=== PATIENT | male | born 1940 | race Hispanic/Latino ===

== ENCOUNTER → 2019-04-18 | Outpatient (CLI) | payer MEDICARE ==
[~2019-04-18] MED LIST: ACYCLOVIR200 MG PO; ASPIR 8181 MG PO; CLOPIDOGREL75 MG PO; D3 PO; FLUTICASONE PRO16 GM INH; FUROSEMIDE40 MG PO; GABAPENTIN300 MG PO; HYDROCODON-ACE1 EA11 PO; ISOSORBIDE MONO20 MG PO; KLOR-CON 88 MEQ PO; LEVOTHYROXINE PO; LISINOPRIL2.5 MG PO; LORATADINE10 MG PO; LORTAB 7.5-5001 EACH PO; LOVENOX40 MG/0.4 SC; METHYLPREDNISOLO4 M1 PO; METOPROLOL TART50 MG PO; PANTOPRAZOLE SO40 MG PO; POTASSIUM CHLO20 ME1 PO; PRAVASTATIN SOD40 MG PO; RANEXA500 MG PO; SYMBICORT 16010.2 GM IH; TEMAZEPAM15 MG PO; ULTRAM 50MG50 MG PO; VITAMIN D1000 UNI1 PO
--- NOTE | 2019-04-18 14:52 | Diagnostic Imaging Report ---
CT of the chest, without contrast, 04/18/2019. History: Pulmonary nodule. Comparison: None available. Technique: Multidetector CT scanning of the chest was performed from the level of the apices to the upper abdomen without contrast. Coronal and sagittal multiplanar reformations were obtained. RADIATION DOSE: Total DLP: 225 mGy*cm Dose modulation, iterative reconstruction, and/or weight based adjustment of the mA/kV was utilized to reduce the radiation dose to as low as reasonably achievable. Discussion: Evaluation is limited without IV contrast. Chest: The heart, aorta, and pulmonary vessels are normal in size. There is calcification of the coronary arteries. 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 There is no gross evidence of adenopathy. There is scattered bilateral subsegmental atelectasis. There are no significant nodules. There is no evidence of consolidation or pleural effusion. Limited evaluation of the upper abdomen shows normal adrenal glands. Bones and soft tissues: No acute abnormality. 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 Median sternotomy wires are present. IMPRESSION: No acute or suspicious findings. Signed by: Sunny Salinas on 04/18/2019 2:49 PM
== END ==
LOC: CT 11:24
PROVIDERS: ATTEND Internal Medicine Critical Care Medicine
DX: R91.8 Other nonspecific abnormal finding of lung field (principal)
CPT/HCPCS: 71250

== ENCOUNTER 2019-07-08 01:15 | Emergency (ER) | payer MEDICARE ==
[~2019-07-08] VITALS: Ht 162.6 cm; Wt 81.6 kg
--- OUTSIDE RECORDS SUMMARY | 2019-07-08 01:20 | XMS REPORT ---
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 Allergies, Adverse Reactions, Alerts This patient has no known allergies or adverse reactions. Medications This patient has no known medications. Results Test Description Test Time Test Comments Text Results Atomic Results Result Comments CT CHEST WO 2019-04-18 14:44:[address] [address] Patient Name: BRYCE MADISON MR #: [id number] : 1940 Age/Sex: 78/M Req #: [id number] Adm Physician: Ordered by: DESMOND MEDRANO MD Report #: [id number] Location: CT Room/Bed: Procedure: [id number] CT/CT CHEST WO Exam Date: 04/18/19 Exam Time: 1130 REPORT STATUS: Signed CT of the chest, without contrast, 04/18/2019. History: Pulmonary nodule. Comparison: None available. Technique: Multidetector CT scanning of the chest was performed from the level of the apices to the upper abdomen without contrast. Coronal and sagittal multiplanar reformations were obtained. RADIATION DOSE: Total DLP: 225 mGy*cm Dose modulation, iterative reconstruction, and/or weight based adjustment of the mA/kV was utilized to reduce the radiation dose to as low as reasonably achievable. Discussion: Evaluation is limited without IV contrast. Chest: The heart, aorta, and pulmonary vessels are normal in size. There is calcification of the coronary arteries. 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 There is no gross evidence of adenopathy. There is scattered bilateral subsegmental atelectasis. There are no significant nodules. There is no evidence of consolidation or pleural effusion. Limited evaluation of the upper abdomen shows normal adrenal glands. Bones and soft tissues: No acute abnormality. 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 Median sternotomy wires are present. IMPRESSION: No acute or suspicious findings. Signed by: Madonna Salinas on 04/18/2019 2:49 PM Dictated By: MADONNA SALINAS MD [id number] Transcribed By: LAUREN on 04/18/19 1449 COPY TO: DESMOND MCDOWELL MD
[2019-07-08] MEDS ORDERED: SILVER NITRATE SWABS ONE (01:37)
[2019-07-08] MEDS ORDERED: AUGMENTIN 875-1 EACH PO (01:42)
[2019-07-08] MEDS ORDERED: TESSALON PERLE100 MG PO (01:52)
== END 2019-07-08 02:16 | disposition home or self-care (01) ==
LOC: FSED 01:15
DX: R04.0 Epistaxis (principal)
CPT/HCPCS: 99283

== ENCOUNTER 2019-07-10 11:13 | Emergency (ER) | payer MEDICARE ==
[~2019-07-10] VITALS: Ht 162.6 cm; Wt 81.6 kg
[~2019-07-10 11:13] MED LIST changes: +AUGMENTIN 875-1 EACH PO; +TESSALON PERLE100 MG PO
[2019-07-10] MEDS ORDERED: OXYMETAZOLINE HCL 0.05% NAS 1 SPRAY BTL ONE ×2 (11:41→12:15)
--- NOTE | 2019-07-10 11:45 | NUR ---
NASAL PACKING REMOVED BY DR SIMMONS PT TOLERATED WELL
== END 2019-07-10 11:48 | disposition home or self-care (01) ==
LOC: FSED 11:13
DX: Z48.00 Encounter for change or removal of nonsurgical wound dressing (principal); R05 Cough; J31.0 Chronic rhinitis; Z95.1 Presence of aortocoronary bypass graft
CPT/HCPCS: 99282

== ENCOUNTER 2020-01-16 12:48 | Emergency (ER) | payer MEDICARE ==
[~2020-01-16] VITALS: Ht 162.6 cm; Wt 81.6 kg
--- OUTSIDE RECORDS SUMMARY | 2020-01-16 12:53 | XMS REPORT | Continuity of Care Document ---
Author Author [facility] t Organization [facility] Address [address] [place] [address] Phone Unavailable Care Team Providers Care Vascular Technologist Name Role Phone JEAN-PIERRE ANAYA, DEAN PCP DESMOND MEDRANO Unavailable Payers Payer Name Policy Type Policy Number Effective Date Expiration Date [facility] [id number] 2016 00:00:00 [facility] TM [id number] 2015 00:00:00 [facility] Problems Condition Name Condition Details Condition Category Status Onset Date Resolution Date Last Treatment Date Treating Clinician Comments Source Anemia Anemia Problem Active [facility] Dyspnea Dyspnea Problem Active [facility] Allergies, Adverse Reactions, Alerts Allergy Name Allergy Type Status Severity Reaction(s) Onset Date Inacti ve Date Treating Clinician Comments Source No Known Allergies DA Active U 2015-12-24 00:00:00 [facility] Medications Ordered Medication Name Filled Medication Name Start Date Stop Da te Current Medication? Ordering Clinician Indication Dosage Frequency Signature (SIG) Comments Components Source Amoxicillin/Potassium Clav (Augmentin 875-125 Tablet) 1 Each Tablet Amoxicillin/Potassium Clav (Augmentin 875-125 Tablet) 1 Each Tablet 2019-07-08 00:00:00 Yes Luis Carvajal Md [address] [facility] Benzonatate (Tessalon Perle) 100 Mg Capsule Benzonatat e (Tessalon Perle) 100 Mg Capsule 2019-07-08 00:00:00 Yes Luis Carvajal Md 100 Three Times A Day as needed for Cough [facility] Aspirin (Aspir 81) 81 Mg Tablet. Aspirin (Aspir 81) 81 Mg Tablet. Yes [address] [facility] Budesonide/Formoterol Fumarate (Symbicor t 160-4.5 Mcg Inhaler) 10.2 Gm Hfa.aer.ad Budesonide/Formoterol Fumarate (Symbicor t 160-4.5 Mcg Inhaler) 10.2 Gm Hfa.aer.ad Yes [address] [facility] Cholecalciferol (Vitamin D3) (Vitamin D) 1,000 Unit [place] Cholecalciferol (Vitamin D3) (Vitamin D) 1,000 Unit Tablet Yes [address] [facility] Clopidogrel Bisulfate (Clopidogrel) 75 Mg Tablet Clopi dogrel Bisulfate (Clopidogrel) 75 Mg Tablet Yes [address] [facility] Fluticasone Propionate 16 Gm Frohna.susp Fluticasone Propiona te 16 Gm Frohna.susp Yes 50 Daily [facility] Furosemide 40 Mg Tablet Furosemide 40 Mg Tablet Yes [address] [facility] Isosorbide Mononitrate 20 Mg Tablet Isosorbide Mononitrate 20 Mg Tabl et Yes 120 Daily [facility] Levothyroxine Levothyroxine Yes [address] [facility] Lisinopril 2.5 Mg Tablet Lisinopril 2.5 Mg Tablet Yes 2.[address] [facility] Loratadine 10 Mg Tablet Loratadine 10 Mg Tablet Yes [address] [facility] Metoprolol Tartrate 50 Mg Tablet Metoprolol Tartrate 50 Mg Tablet Yes [address] [facility] Pantoprazole Sodium (Protonix) 40 Mg Tablet. Pantopr azole Sodium (Protonix) 40 Mg Tablet. Yes [address] [facility] Potassium Chloride 20 Meq Tab.er.prt Potassium Chloride 20 Meq Tab. er.prt Yes 10 Twice A Day [facility] Ranolazine (Ranexa) 500 Mg Tabsr Ranolazine (Ranexa) 500 Mg Tabsr Yes [address] [facility] Tramadol Hcl (Ultram 50MG*) 50 Mg Tab Tramadol Hcl (Ultram 50MG*) 5 0 Mg Tab Yes 50 Every 6 Hours as needed for Pain [facility] Acyclovir 200 Mg Capsule, 200 Mg Oral Acyclovir 200 Mg Capsule, 200 Mg Oral 2016-05-05 00:00:00 No [address] [facility] D3 , 2000 Oral D3 , 1999 Oral 2016-05-05 00:00:[address] [facility] Enoxaparin Sodium (Lovenox) 40 Mg/0.4 Ml Inj, 40 Mg Hanson bcutaneously Enoxaparin Sodium (Lovenox) 40 Mg/0.4 Ml Inj, 40 Mg Subcutaneously 2015 00:00:[address] [facility] Gabapentin 300 Mg Capsule, 300 Mg Oral Gabapentin 300 Mg Capsule , 300 Mg Oral 2016-05-05 00:00:00 No [address] [facility] Hydrocodone Bit/Acetaminophen (Hydrocodo n-Acetaminophen 5-325) 1 Each Tablet, Oral Hydrocodone Bit/Acetaminophen (Hydrocodo n-Acetaminophen 5-325) 1 Each Tablet, Oral 2016-05-05 00:00:00 No Twice A D ay [facility] Hydrocodone Bit/Acetaminophen (Lortab 7. 5-500 Tablet) 1 Each Tablet, 1 - 2 Tab Oral Hydrocodone Bit/Acetaminophen (Lortab 7. 5-500 Tablet) 1 Each Tablet, 1 - 2 Tab Oral 2016-05-05 00:00:00 No Every [address] [facility] Methylprednisolone 4 Mg Tab.ds.pk, Oral Methylpredni solone 4 Mg Tab.ds.pk, Oral 2016-05-05 00:00:[address] [facility] Potassium Chloride (Klor-Con 8) 8 Meq Tablet.er, 8 Meq Oral Potassium Chloride (Klor-Con 8) 8 Meq Tablet.er, 8 Meq Oral 2016-05-05 00:00:00 No 8 Twice A Day [facility] Pravastatin Sodium 40 Mg Tablet, 40 Mg Oral Pravastati n Sodium 40 Mg Tablet, 40 Mg Oral 2016-05-05 00:00:[address] [facility] Temazepam 15 Mg Capsule, 15 Mg Oral Temazepam 15 Mg Capsule, 15 Mg Oral 2016-05-05 00:00:[address] [facility] Procedures Procedure Date / Time Performed Performing Clinician Sour e Computed tomography of chest without contrast 2019-04-18 00:00:[address] [facility] Encounters Start Date/Time End Date/Time Encounter Type Admission Type [facility] Emergency Department Facility Care Department Encounter ID Source 2019-07-10 11:13:00 2019-07-10 11:48:00 Departed Emergency Room [facility] [id number] [facility] 2019-07-08 01:15:00 2019-07-08 02:16:00 Departed Emergency Room [facility] [id number] [facility] 2019-04-18 11:24:00 2019-04-18 11:24:00 Registered Clinic 3 DESMOND HARRISON [facility] [id number] [facility] Results Test Description Test Time Test Comments Results Result Comments Source CBC W/AUTO DIFF 2020-01-08 08:45:00 Test Item WHITE BLOOD CELL (test code = WBC) 6.50 x10 3/uL 4.5-11.0 N RED BLOOD CELL (test code = RBC) 3.39 x10 6/uL 4.00-5.60 L HEMOGLOBIN (test code = HGB) 7.4 g/dL 12.5-16.9 L HEMATOCRIT (test code = HCT) 24.8 % 37.5-50.7 L MEAN CELL VOLUME (test code = MCV) 73.2 fL 81.0-99.0 L MEAN CELL HGB (test code = MCH) 21.8 pg 27.0-33.0 L MEAN CELL HGB CONCETRATION (test code = MCHC) 29.8 g/dL 33.0-37. 0 L RED CELL DISTRIBUTION WIDTH CV (test code = RDW) 20.8 % 11.5- 14.5 H RED CELL DISTRIBUTION WIDTH SD (test code = RDW-SD) 55.3 fL 37 .0-54.0 H PLATELET COUNT (test code = PLT) 182 x10 3/uL 150-400 N IMMATURE PLATELET FRACTION (test code = IPF) 4.3 % 0.9-11.2 N MEAN PLATELET VOLUME (test code = MPV) 10.8 fL 7.0-9.0 H NEUTROPHIL % (test code = NT%) 60.4 % 56.0-77.0 N IMMATURE GRANULOCYTE % (test code = IG%) 0.3 % 0.0-2.0 N LYMPHOCYTE % (test code = LY%) 25.1 % 14.0-32.0 N MONOCYTE % (test code = MO%) 10.3 % 4.8-9.0 H EOSINOPHIL % (test code = EO%) 3.4 % 0.3-3.7 N BASOPHIL % (test code = BA%) 0.5 % 0.0-2.0 N NUCLEATED RBC % (test code = NRBC%) 0.0 % 0-0 N NEUTROPHIL # (test code = NT#) 3.93 x10 3/uL 2.0-7.6 N IMMATURE GRANULOCYTE # (test code = IG#) 0.02 x10 3/uL 0.00-0.03 N LYMPHOCYTE # (test code = LY#) 1.63 x10 3/uL 1.0-3.8 N MONOCYTE # (test code = MO#) 0.67 x10 3/uL 0.1-0.8 N EOSINOPHIL # (test code = EO#) 0.22 x10 3/uL 0.0-0.2 H BASOPHIL # (test code = BA#) 0.03 x10 3/uL 0.0-0.2 N NUCLEATED RBC # (test code = NRBC#) 0.00 x10 3/uL 0.0-0.1 N MANUAL DIFF REQUIRED (test code = MDIFF) NO BASIC METABOLIC [id number] 08:06:00* Test Item Value Reference Range Interpretation Comments SODIUM (test code = NA) 141 mEq/L 134-147 N POTASSIUM (test code = K) 3.7 mEq/L 3.4-5.0 N CHLORIDE (test code = CL) 109 mEq/L 100-108 H CARBON DIOXIDE (test code = CO2) 23 mEq/L 21-33 N ANION GAP (test code = GAP) 13 0-20 N GLUCOSE (test code = GLU) 68 mg/dL 70-110 L BLOOD UREA NITROGEN (test code = BUN) 12 mg/dL 7-18 N GLOMERULAR FILTRATION RATE (test code = GFR) 81.6 70-80 H Units of measure = ml/min/1.73 m2 CREATININE (test code = CREAT) 0.9 mg/dL 0.6-1.3 N CALCIUM (test code = CA) 8.1 mg/dL 8.0-10.5 N [id number] 08:06:00* Test Item Value Reference Range Interpretation Comments MAGNESIUM (test code = MAG) 2.40 mg/dL 1.8-2.4 N PROTHROMBIN [id number] 06:36:00* Test Item Value Reference Range Interpretation Comments PROTHROMBIN TIME PATIENT (test code = PTP) 14.3 SECONDS 9.3-12.9 H INTERNATIONAL NORMAL RATIO (test code = INR) 1.3 0.8-1.2 H TARGET INR BY INDICATION Indication INR1. Prophylaxis of venous thrombosis 2.0 - 3.0 (orthopedic surgery), Prophylaxis of venous thrombosis (other than high-risk surgery), Treatment of Deep Vein Thrombosis/Pulmonary Embolism, Prevention of systemic embolism - Tissue heart valves, Acute Myocardial Infarction (to prevent systemic embolism), Valvular heart disease, Atrial Fibrillation, Bileaflet mechanical valve in aortic position.2. Mechanical prosthetic valves (high risk), 2.5 - 3.5 Presence of Lupus Anticoagulant or Antiphospholipid Antibodies, Prevention of systemic embolism - Acute Myocardial Infarction (to prevent recurrent infarct). PROTHROMBIN [id number] 12:17:00* Test Item Value Reference Range Interpretation Comments PROTHROMBIN TIME PATIENT (test code = PTP) 14.0 SECONDS 9.3-12.9 H INTERNATIONAL NORMAL RATIO (test code = INR) 1.3 0.8-1.2 H TARGET INR BY INDICATION Indication INR1. Prophylaxis of venous thrombosis 2.0 - 3.0 (orthopedic surgery), Prophylaxis of venous thrombosis (other than high-risk surgery), Treatment of Deep Vein Thrombosis/Pulmonary Embolism, Prevention of systemic embolism - Tissue heart valves, Acute Myocardial Infarction (to prevent systemic embolism), Valvular heart disease, Atrial Fibrillation, Bileaflet mechanical valve in aortic position.2. Mechanical prosthetic valves (high risk), 2.5 - 3.5 Presence of Lupus Anticoagulant or Antiphospholipid Antibodies, Prevention of systemic embolism - Acute Myocardial Infarction (to prevent recurrent infarct). BASIC METABOLIC [id number] 11:43:00* Test Item Value Reference Range Interpretation Comments SODIUM (test code = NA) 138 mEq/L 134-147 N POTASSIUM (test code = K) 3.9 mEq/L 3.4-5.0 N CHLORIDE (test code = CL) 104 mEq/L 100-108 N CARBON DIOXIDE (test code = CO2) 25 mEq/L 21-33 N ANION GAP (test code = GAP) 13 0-20 N GLUCOSE (test code = GLU) 115 mg/dL 70-110 H BLOOD UREA NITROGEN (test code = BUN) 14 mg/dL 7-18 N GLOMERULAR FILTRATION RATE (test code = GFR) 64.7 70-80 L Units of measure = ml/min/1.73 m2 CREATININE (test code = CREAT) 1.1 mg/dL 0.6-1.3 N CALCIUM (test code = CA) 8.7 mg/dL 8.0-10.5 N CBC W/AUTO [id number] 11:39:00* Test Item Value Reference Range Interpretation Comments WHITE BLOOD CELL (test code = WBC) 6.71 x10 3/uL 4.5-11.0 N RED BLOOD CELL (test code = RBC) 3.22 x10 6/uL 4.00-5.60 L HEMOGLOBIN (test code = HGB) 7.0 g/dL 12.5-16.9 L HEMATOCRIT (test code = HCT) 23.5 % 37.5-50.7 L MEAN CELL VOLUME (test code = MCV) 73.0 fL 81.0-99.0 L MEAN CELL HGB (test code = MCH) 21.7 pg 27.0-33.0 L MEAN CELL HGB CONCETRATION (test code = MCHC) 29.8 g/dL 33.0-37. 0 L RED CELL DISTRIBUTION WIDTH CV (test code = RDW) 20.7 % 11.5- 14.5 H RED CELL DISTRIBUTION WIDTH SD (test code = RDW-SD) 55.1 fL 37 .0-54.0 H PLATELET COUNT (test code = PLT) 188 x10 3/uL 150-400 N IMMATURE PLATELET FRACTION (test code = IPF) 4.6 % 0.9-11.2 N MEAN PLATELET VOLUME (test code = MPV) 10.6 fL 7.0-9.0 H NEUTROPHIL % (test code = NT%) 69.2 % 56.0-77.0 N IMMATURE GRANULOCYTE % (test code = IG%) 0.4 % 0.0-2.0 N LYMPHOCYTE % (test code = LY%) 17.4 % 14.0-32.0 N MONOCYTE % (test code = MO%) 10.0 % 4.8-9.0 H EOSINOPHIL % (test code = EO%) 2.7 % 0.3-3.7 N BASOPHIL % (test code = BA%) 0.3 % 0.0-2.0 N NUCLEATED RBC % (test code = NRBC%) 0.0 % 0-0 N NEUTROPHIL # (test code = NT#) 4.64 x10 3/uL 2.0-7.6 N IMMATURE GRANULOCYTE # (test code = IG#) 0.03 x10 3/uL 0.00-0.03 N LYMPHOCYTE # (test code = LY#) 1.17 x10 3/uL 1.0-3.8 N MONOCYTE # (test code = MO#) 0.67 x10 3/uL 0.1-0.8 N EOSINOPHIL # (test code = EO#) 0.18 x10 3/uL 0.0-0.2 N BASOPHIL # (test code = BA#) 0.02 x10 3/uL 0.0-0.2 N NUCLEATED RBC # (test code = NRBC#) 0.00 x10 3/uL 0.0-0.1 N MANUAL DIFF REQUIRED (test code = MDIFF) NO RBC [id number] 11:39:00* Test Item Value Reference Range Interpretation Comments POLYCHROMASIA (test code = POLC) 1+ POIKILOCYTOSIS (test code = POIK) 2+ ANISOCYTOSIS (test code = ANISO) 2+ MICROCYTOSIS (test code = MICR) 2+ TARGET CELLS (test code = TGT) 1+ ELLIPTOCYTES (test code = ELL) 1+ OVALOCYTES (test code = OVAL) 1+ SCHISTOCYTES (test code = ALISON) 1+ CBC W/AUTO [id number] 11:27:00* Test Item Value Reference Range Interpretation Comments WHITE BLOOD CELL (test code = WBC) 7.32 x10 3/uL 4.5-11.0 N RED BLOOD CELL (test code = RBC) 3.53 x10 6/uL 4.00-5.60 L HEMOGLOBIN (test code = HGB) 7.7 g/dL 12.5-16.9 L HEMATOCRIT (test code = HCT) 25.6 % 37.5-50.7 L MEAN CELL VOLUME (test code = MCV) 72.5 fL 81.0-99.0 L MEAN CELL HGB (test code = MCH) 21.8 pg 27.0-33.0 L MEAN CELL HGB CONCETRATION (test code = MCHC) 30.1 g/dL 33.0-37. 0 L RED CELL DISTRIBUTION WIDTH CV (test code = RDW) 20.8 % 11.5- 14.5 H RED CELL DISTRIBUTION WIDTH SD (test code = RDW-SD) 54.7 fL 37 .0-54.0 H PLATELET COUNT (test code = PLT) 197 x10 3/uL 150-400 N IMMATURE PLATELET FRACTION (test code = IPF) 3.8 % 0.9-11.2 N MEAN PLATELET VOLUME (test code = MPV) 10.8 fL 7.0-9.0 H NEUTROPHIL % (test code = NT%) 76.9 % 56.0-77.0 N IMMATURE GRANULOCYTE % (test code = IG%) 0.5 % 0.0-2.0 N LYMPHOCYTE % (test code = LY%) 11.6 % 14.0-32.0 L MONOCYTE % (test code = MO%) 8.7 % 4.8-9.0 N EOSINOPHIL % (test code = EO%) 2.0 % 0.3-3.7 N BASOPHIL % (test code = BA%) 0.3 % 0.0-2.0 N NUCLEATED RBC % (test code = NRBC%) 0.3 % 0-0 H NEUTROPHIL # (test code = NT#) 5.62 x10 3/uL 2.0-7.6 N IMMATURE GRANULOCYTE # (test code = IG#) 0.04 x10 3/uL 0.00-0.03 H LYMPHOCYTE # (test code = LY#) 0.85 x10 3/uL 1.0-3.8 L MONOCYTE # (test code = MO#) 0.64 x10 3/uL 0.1-0.8 N EOSINOPHIL # (test code = EO#) 0.15 x10 3/uL 0.0-0.2 N BASOPHIL # (test code = BA#) 0.02 x10 3/uL 0.0-0.2 N NUCLEATED RBC # (test code = NRBC#) 0.02 x10 3/uL 0.0-0.1 N MANUAL DIFF REQUIRED (test code = MDIFF) NO [id number] 11:22:00* Test Item Value Reference Range Interpretation Comments GLUBED (test code = GLUBED) 135 MG/DL 70-110 H Performed by certified deskidding machine operator at [facility] BASIC METABOLIC [id number] 09:02:00* Test Item Value Reference Range Interpretation Comments SODIUM (test code = NA) 138 mEq/L 134-147 N POTASSIUM (test code = K) 4.1 mEq/L 3.4-5.0 N CHLORIDE (test code = CL) 107 mEq/L 100-108 N CARBON DIOXIDE (test code = CO2) 23 mEq/L 21-33 N ANION GAP (test code = GAP) 12 0-20 N GLUCOSE (test code = GLU) 78 mg/dL 70-110 N BLOOD UREA NITROGEN (test code = BUN) 15 mg/dL 7-18 N GLOMERULAR FILTRATION RATE (test code = GFR) 72.3 70-80 N Units of measure = ml/min/1.73 m2 CREATININE (test code = CREAT) 1.0 mg/dL 0.6-1.3 N CALCIUM (test code = CA) 8.2 mg/dL 8.0-10.5 N [id number] 09:02:00* Test Item Value Reference Range Interpretation Comments PHOSPHOROUS (test code = PHOS) 3.8 MG/DL 2.5-4.9 N [id number] 09:02:00* Test Item Value Reference Range Interpretation Comments MAGNESIUM (test code = MAG) 2.40 mg/dL 1.8-2.4 N [id number] 08:32:00* Test Item Value Reference Range Interpretation Comments GLUBED (test code = GLUBED) 94 MG/DL 70-110 N Performed by certified deskidding machine operator at [facility] CBC W/AUTO [id number] 08:17:00* Test Item Value Reference Range Interpretation Comments WHITE BLOOD CELL (test code = WBC) 6.71 x10 3/uL 4.5-11.0 N RED BLOOD CELL (test code = RBC) 3.22 x10 6/uL 4.00-5.60 L HEMOGLOBIN (test code = HGB) 7.0 g/dL 12.5-16.9 L HEMATOCRIT (test code = HCT) 23.5 % 37.5-50.7 L MEAN CELL VOLUME (test code = MCV) 73.0 fL 81.0-99.0 L MEAN CELL HGB (test code = MCH) 21.7 pg 27.0-33.0 L MEAN CELL HGB CONCETRATION (test code = MCHC) 29.8 g/dL 33.0-37. 0 L RED CELL DISTRIBUTION WIDTH CV (test code = RDW) 20.7 % 11.5- 14.5 H RED CELL DISTRIBUTION WIDTH SD (test code = RDW-SD) 55.1 fL 37 .0-54.0 H PLATELET COUNT (test code = PLT) 188 x10 3/uL 150-400 N IMMATURE PLATELET FRACTION (test code = IPF) 4.6 % 0.9-11.2 N MEAN PLATELET VOLUME (test code = MPV) 10.6 fL 7.0-9.0 H NEUTROPHIL % (test code = NT%) 69.2 % 56.0-77.0 N IMMATURE GRANULOCYTE % (test code = IG%) 0.4 % 0.0-2.0 N LYMPHOCYTE % (test code = LY%) 17.4 % 14.0-32.0 N MONOCYTE % (test code = MO%) 10.0 % 4.8-9.0 H EOSINOPHIL % (test code = EO%) 2.7 % 0.3-3.7 N BASOPHIL % (test code = BA%) 0.3 % 0.0-2.0 N NUCLEATED RBC % (test code = NRBC%) 0.0 % 0-0 N NEUTROPHIL # (test code = NT#) 4.64 x10 3/uL 2.0-7.6 N IMMATURE GRANULOCYTE # (test code = IG#) 0.03 x10 3/uL 0.00-0.03 N LYMPHOCYTE # (test code = LY#) 1.17 x10 3/uL 1.0-3.8 N MONOCYTE # (test code = MO#) 0.67 x10 3/uL 0.1-0.8 N EOSINOPHIL # (test code = EO#) 0.18 x10 3/uL 0.0-0.2 N BASOPHIL # (test code = BA#) 0.02 x10 3/uL 0.0-0.2 N NUCLEATED RBC # (test code = NRBC#) 0.00 x10 3/uL 0.0-0.1 N MANUAL DIFF REQUIRED (test code = MDIFF) NO RBC [id number] 08:17:00* Test Item Value Reference Range Interpretation Comments ANISOCYTOSIS (test code = ANISO) CBC W/AUTO [id number] 08:17:00* Test Item Value Reference Range Interpretation Comments WHITE BLOOD CELL (test code = WBC) 6.71 x10 3/uL 4.5-11.0 N RED BLOOD CELL (test code = RBC) 3.22 x10 6/uL 4.00-5.60 L HEMOGLOBIN (test code = HGB) 7.0 g/dL 12.5-16.9 L HEMATOCRIT (test code = HCT) 23.5 % 37.5-50.7 L MEAN CELL VOLUME (test code = MCV) 73.0 fL 81.0-99.0 L MEAN CELL HGB (test code = MCH) 21.7 pg 27.0-33.0 L MEAN CELL HGB CONCETRATION (test code = MCHC) 29.8 g/dL 33.0-37. 0 L RED CELL DISTRIBUTION WIDTH CV (test code = RDW) 20.7 % 11.5- 14.5 H RED CELL DISTRIBUTION WIDTH SD (test code = RDW-SD) 55.1 fL 37 .0-54.0 H PLATELET COUNT (test code = PLT) 188 x10 3/uL 150-400 N IMMATURE PLATELET FRACTION (test code = IPF) 4.6 % 0.9-11.2 N MEAN PLATELET VOLUME (test code = MPV) 10.6 fL 7.0-9.0 H NEUTROPHIL % (test code = NT%) 69.2 % 56.0-77.0 N IMMATURE GRANULOCYTE % (test code = IG%) 0.4 % 0.0-2.0 N LYMPHOCYTE % (test code = LY%) 17.4 % 14.0-32.0 N MONOCYTE % (test code = MO%) 10.0 % 4.8-9.0 H EOSINOPHIL % (test code = EO%) 2.7 % 0.3-3.7 N BASOPHIL % (test code = BA%) 0.3 % 0.0-2.0 N NUCLEATED RBC % (test code = NRBC%) 0.0 % 0-0 N NEUTROPHIL # (test code = NT#) 4.64 x10 3/uL 2.0-7.6 N IMMATURE GRANULOCYTE # (test code = IG#) 0.03 x10 3/uL 0.00-0.03 N LYMPHOCYTE # (test code = LY#) 1.17 x10 3/uL 1.0-3.8 N MONOCYTE # (test code = MO#) 0.67 x10 3/uL 0.1-0.8 N EOSINOPHIL # (test code = EO#) 0.18 x10 3/uL 0.0-0.2 N BASOPHIL # (test code = BA#) 0.02 x10 3/uL 0.0-0.2 N NUCLEATED RBC # (test code = NRBC#) 0.00 x10 3/uL 0.0-0.1 N MANUAL DIFF REQUIRED (test code = MDIFF) NO RBC [id number] 08:17:00* Test Item Value Reference Range Interpretation Comments ANISOCYTOSIS (test code = ANISO) Novel Coronavirus [id number] 03:44:00* Test Item Value Reference Range Interpretation Comments Novel Coronavirus 2019 Inhouse (test code = [id number]) Negative Negative Positive results are indicative of the presence vmHHSN-[id number]-0 RNA, clinical correlation with patient historyand other diagnostic information is necessary to determinepatient infection status. Positive results do not rule outbacterial infection or co-infection with other viruses. Negative results do not preclude SARS-CoV-2 infection andshould not be used as the sole basis for patient managementdecisions. Negative results must be combined with otherclinical observations, patient history, and epidemiologicalinformation. Detection of SARS-CoV-2 RNA may be affected bysample collection methods, storage conditions, and/or stageof infection. Viral RNA mutations, vaccinations, antiviraltherapeutics, antibiotics, chemotherapeutic orimmunosuppressant drugs have not been evaluated for effectson detection. Results are for the identification of SARS-CoV-2 RNA usingthe [employer] M2000 System under the FDA Emergency UseAuthorization. The testing is performed by personneltrained in the procedures for the [employer] M2000 moleculardiagnostic SARS-CoV-2 assay in vitro. Testing Criteria: Shortness of [id number] 00:29:00* Test Item Value Reference Range Interpretation Comments TROPONIN-I (test code = TROPI) 0.134 ng/mL 0.000-0.045 HH Negative: <= 0.045 Positive: >= 0.046 Correlation with serial results, other cardiac markers andclinical findings is necessary to determine the clinicalsignificance of this result. Results using different methodologies should not be comparedto one another as quantitative results may vary by method. COMMENTS: 3 troponins total (including troponin done in ED)HGB [id number] 00:15:00* Test Item Value Reference Range Interpretation Comments HEMOGLOBIN (test code = HGB) 7.1 g/dL 12.5-16.9 L HEMATOCRIT (test code = HCT) 24.5 % 37.5-50.7 L [id number] 22:04:00* Test Item Value Reference Range Interpretation Comments TROPONIN-I (test code = TROPI) 0.108 ng/mL 0.000-0.045 HH Negative: <= 0.045 Positive: >= 0.046 Correlation with serial results, other cardiac markers andclinical findings is necessary to determine the clinicalsignificance of this result. Results using different methodologies should not be comparedto one another as quantitative results may vary by method. COMMENTS: 3 troponins total (including troponin done in ED)HGB [id number] 21:30:00* Test Item Value Reference Range Interpretation Comments HEMOGLOBIN (test code = HGB) 7.6 g/dL 12.5-16.9 L HEMATOCRIT (test code = HCT) 26.2 % 37.5-50.7 L [id number] 21:23:00* Test Item Value Reference Range Interpretation Comments GLUBED (test code = GLUBED) 151 MG/DL 70-110 H Performed by certified deskidding machine operator at [facility] - XR CHEST 1 [id number] 17:54:00 FAX: Minnie SchmidtMagnus MARCUS [phone] [place]: St: ADM Name: [facility] : [birth year] Age/S: 79/M [address] [place] [address] Unit #: [id number] Loc: [place] [address] Phys: Magnus Schmidt DO Acct: [id number] Dis Date: Status: ADM IN PHONE #: [phone] Exam Date: 01/06/20201749 FAX #: [phone] Reason: elevated BNP; SOB EXAMS: CPT CODE: [id number] XR CHEST 1 V 30265 PROCEDURE: Chest Radiograph. Clinical Indication: Shortness of breath, GI bleed, cardiac ischemia. Comparison: Chest radiograph 11/15/2012. FINDINGS: The chest shows normal lung volumes without interstitial or airspace opacities, pleural effusions or pneumothorax. The cardiac silhouette is enlarged. There is minimal vascular congestion. The patient has had prior midline sternotomy. IMPRESSION: 1. Cardiomegaly with minimal vascular congestion. SL: OCO-H at 7761 Reported and signed by: Arian Malone M.D. CC: Magnus Schmidt DO Technologist: GILLIAN Posadas RT(R); Sagrario Hoover RT(R) Trnscrd Date/Time/By: 01/06/2020 (1753) : By: Demi Orig Print D/T: S: 01/06/2020 (1756) PAGE 1 Signed Report UA RFLX MICR CULT IF [id number] 15:27:00* Test Item Value Reference Range Interpretation Comments UA COLOR (test code = COLU) YELLOW YEL/STRAW UA APPEARANCE (test code = APPU) CLEAR CLEAR UA GLUCOSE DIPSTICK (test code = DGLUU) NEGATIVE NEGATIVE UA BILIRUBIN DIPSTICK (test code = BILU) NEGATIVE NEGATIVE UA KETONE DIPSTICK (test code = KETU) NEGATIVE NEGATIVE UA SPECIFIC GRAVITY (test code = SGU) 1.014 1.005-1.030 N UA BLOOD DIPSTICK (test code = KEY) NEGATIVE NEGATIVE UA PH DIPSTICK (test code = STEPHEN) 5.0 5.0-7.0 N UA PROTEIN DIPSTICK (test code = PROU) NEGATIVE NEGATIVE UA UROBILINIOGEN DIPSTICK (test code = URO) 0.2 mg/dL 0.2-1.0 UA NITRITE DIPSTICK (test code = EHSAN) NEGATIVE NEGATIVE UA LEUKOCYTE ESTERASE DIPSTICK (test code = LEUU) NEGATIVE NEGA TIVE UA WBC (test code = WBCU) 0-3 WBC/HPF 0-3 UA RBC (test code = RBCU) 0-3 RBC/HPF 0-3 UA WBC NO REFLEX (test code = WBCUCL) 0-3 WBC/HPF 0-3 UA BACTERIA (test code = BACU) TRACE /HPF NONE SEEN UA SQUAMOUS CELLS (test code = SQU) 0-5 /HPF NONE SEEN UA HYALINE CAST (test code = HYALU) 11-20 /LPF NONE SEEN UA MUCUS (test code = MUCU) 1+ /LPF NONE SEEN Indication for culture: Dysuria/FrequencySpecimen Description: Clean CatchB- TYPE NATRIURETIC [id number] 15:25:00* Test Item Value Reference Range Interpretation Comments B-TYPE NATRIURETIC PEPTIDE (test code = BNP) 807.9 PG/ML 0-100 H LIPOPROTEIN [id number] 15:15:00* Test Item Value Reference Range Interpretation Comments LIPOPROTEIN LDL (test code = LDL) 58 mg/dL 0-100 N <100 [id number] NEAR OPTIMAL/ABOVE [id number] HIGH>VC=081 VERY HIGH*Guidelines provided by the National Cholesterol EducationProgram Adult Treatment Panel III BASIC METABOLIC [id number] 14:57:00* Test Item Value Reference Range Interpretation Comments SODIUM (test code = NA) 135 mEq/L 134-147 N POTASSIUM (test code = K) 4.2 mEq/L 3.4-5.0 N CHLORIDE (test code = CL) 102 mEq/L 100-108 N CARBON DIOXIDE (test code = CO2) 24 mEq/L 21-33 N ANION GAP (test code = GAP) 13 0-20 N GLUCOSE (test code = GLU) 102 mg/dL 70-110 N BLOOD UREA NITROGEN (test code = BUN) 19 mg/dL 7-18 H GLOMERULAR FILTRATION RATE (test code = GFR) 72.3 70-80 N Units of measure = ml/min/1.73 m2 CREATININE (test code = CREAT) 1.0 mg/dL 0.6-1.3 N CALCIUM (test code = CA) 8.7 mg/dL 8.0-10.5 N HEPATIC FUNCTION [id number] 14:57:00* Test Item Value Reference Range Interpretation Comments TOTAL PROTEIN (test code = PROT) 6.6 g/dL 6.4-8.2 N ALBUMIN (test code = ALB) 3.40 g/dL 3.4-5.0 N BILIRUBIN TOTAL (test code = BILT) 0.7 MG/DL <1.5 N BILIRUBIN DIRECT (test code = BILD) 0.20 MG/DL 0.0-0.30 N BILIRUBIN INDIRECT (test code = BILIND) 0.50 MG/DL SGOT/AST (test code = AST) 11 IUnit/L 15-37 L SGPT/ALT (test code = ALT) 17 IUnit/L 15-65 N ALKALINE PHOSPHATASE TOTAL (test code = ALKP) 64 IUnit/L 20-125 N [id number] 14:57:00* Test Item Value Reference Range Interpretation Comments LIPASE (test code = LIP) 93 IUnit/L 73-393 N [id number] 14:57:00* Test Item Value Reference Range Interpretation Comments TROPONIN-I (test code = TROPI) 0.150 ng/mL 0.000-0.045 HH Negative: <= 0.045 Positive: >= 0.046 Correlation with serial results, other cardiac markers andclinical findings is necessary to determine the clinicalsignificance of this result. Results using different methodologies should not be comparedto one another as quantitative results may vary by method. PROTHROMBIN [id number] 14:51:00* Test Item Value Reference Range Interpretation Comments PROTHROMBIN TIME PATIENT (test code = PTP) 14.2 SECONDS 9.3-12.9 H INTERNATIONAL NORMAL RATIO (test code = INR) 1.3 0.8-1.2 H TARGET INR BY INDICATION Indication INR1. Prophylaxis of venous thrombosis 2.0 - 3.0 (orthopedic surgery), Prophylaxis of venous thrombosis (other than high-risk surgery), Treatment of Deep Vein Thrombosis/Pulmonary Embolism, Prevention of systemic embolism - Tissue heart valves, Acute Myocardial Infarction (to prevent systemic embolism), Valvular heart disease, Atrial Fibrillation, Bileaflet mechanical valve in aortic position.2. Mechanical prosthetic valves (high risk), 2.5 - 3.5 Presence of Lupus Anticoagulant or Antiphospholipid Antibodies, Prevention of systemic embolism - Acute Myocardial Infarction (to prevent recurrent infarct). [id number] 14:43:00* Test Item Value Reference Range Interpretation Comments D-DIMER (test code = DDIMER) 418 ng/mlFEU <=500 N THROMBOSIS AND/OR PULMONARY EMBOLISM AND THE CLINICAL CUT- OFF VALUE FOR EXCLUSION (500 ng/mL FEU) OF THESE CONDITIONSIS VALIDATED BY THE WEBSPHERE COMMERCE DEVELOPER OF THE METHOD. A NEGATIVE D-DIMER RESULT WHEN COMBINED WITH A CLINICALASSESSMENT OF LOW PRETEST PROBABILITY HAS BEEN SHOWN TO HAVEA HIGH NEGATIVE PREDICTIVE VALUE OF DVT OR PE. D-DIMER VALUES >500 ng/mL FEU ARE NOT DIAGNOSTIC FOR DVT, PEor DIC WITHOUT OTHER CONFIRMATORY TESTS AND APPROPRIATECLINICAL EUALUATIONS. CBC W/AUTO [id number] 14:34:00* Test Item Value Reference Range Interpretation Comments WHITE BLOOD CELL (test code = WBC) 6.59 x10 3/uL 4.5-11.0 N RED BLOOD CELL (test code = RBC) 3.06 x10 6/uL 4.00-5.60 L HEMOGLOBIN (test code = HGB) 6.2 g/dL 12.5-16.9 LL HEMATOCRIT (test code = HCT) 21.8 % 37.5-50.7 L MEAN CELL VOLUME (test code = MCV) 71.2 fL 81.0-99.0 L MEAN CELL HGB (test code = MCH) 20.3 pg 27.0-33.0 L MEAN CELL HGB CONCETRATION (test code = MCHC) 28.4 g/dL 33.0-37. 0 L RED CELL DISTRIBUTION WIDTH CV (test code = RDW) 19.9 % 11.5- 14.5 H RED CELL DISTRIBUTION WIDTH SD (test code = RDW-SD) 51.7 fL 37 .0-54.0 N PLATELET COUNT (test code = PLT) 199 x10 3/uL 150-400 N MEAN PLATELET VOLUME (test code = MPV) 10.2 fL 7.0-9.0 H NEUTROPHIL % (test code = NT%) 68.3 % 56.0-77.0 N IMMATURE GRANULOCYTE % (test code = IG%) 0.5 % 0.0-2.0 N LYMPHOCYTE % (test code = LY%) 17.9 % 14.0-32.0 N MONOCYTE % (test code = MO%) 10.9 % 4.8-9.0 H EOSINOPHIL % (test code = EO%) 2.1 % 0.3-3.7 N BASOPHIL % (test code = BA%) 0.3 % 0.0-2.0 N NUCLEATED RBC % (test code = NRBC%) 0.3 % 0-0 H NEUTROPHIL # (test code = NT#) 4.50 x10 3/uL 2.0-7.6 N IMMATURE GRANULOCYTE # (test code = IG#) 0.03 x10 3/uL 0.00-0.03 N LYMPHOCYTE # (test code = LY#) 1.18 x10 3/uL 1.0-3.8 N MONOCYTE # (test code = MO#) 0.72 x10 3/uL 0.1-0.8 N EOSINOPHIL # (test code = EO#) 0.14 x10 3/uL 0.0-0.2 N BASOPHIL # (test code = BA#) 0.02 x10 3/uL 0.0-0.2 N NUCLEATED RBC # (test code = NRBC#) 0.02 x10 3/uL 0.0-0.1 N MANUAL DIFF REQUIRED (test code = MDIFF) NO CT CHEST [id number] 14:44:[address] [address] Patient Name: BRYCE MADISON MR #: [id number] : 1940 Age/Sex: 78/M Req #: [id number] Adm Physician: Ordered by: DESMOND MEDRANO MD Report #: [id number] Location: CT Room/Bed: Procedure: [id number] C T/CT CHEST WO Exam Date: 04/18/19 Exam Time: [...] adjustment of the mA/kV was utilized to re duce the radiation dose to as low as reasonably achievable. Discussio n: Evaluation is limited without IV contrast. Chest: The heart, aorta, and p ulmonary vessels are normal in size. There is calcification of the coronary ar teries. 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 There is no gross evidence of adenopathy. Ther e is scattered bilateral subsegmental atelectasis. There are no significant no dules. There is no evidence of consolidation or pleural effusion. Limi reji evaluation of the upper abdomen shows normal adrenal glands. Bones and soft tissues: No acute abnormality. 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 Median sternotomy wires are present. IMPR ESSION: No acute or suspicious findings. Signed by: Sunny Salinas on 04/18/2019 2:49 PM Dictated By: SUNNY SALINAS MD Transcribed By: LAUREN on 04/18/191448 COPY TO: DESMOND MEDRANO MD
--- NOTE | 2020-01-16 13:26 | Emergency Department Note ---
History of Present Illnes History of Present Illness Chief Complaint: General Medicine Complaints History of Present Illness This is a 79 year old male . 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 Onset (how long ago): day(s) (todya) Radiation: Denies non-radiation, Denies back, Denies neck, Denies extremity, Denies abdomen, Denies periumbilical, Denies flank, Denies proximal, Denies distal, Denies other Severity: mild Onset quality: gradual Duration (how long): week(s) (several days ) Timing of current episode: constant Progression: unchanged Context: Denies recent illness, Denies recent surgery, Denies recent immobilization, Denies recent travel, Denies trauma/injury, Denies new medications, Denies hx of DVT/PE, Denies non-compliance w/ medications, Denies other Relieving factors: none Exacerbating factors: none Associated symptoms: Denies denies other symptoms, Denies confusion, Denies chest pain, Denies cough, Denies diaphoresis, Denies fever/chills, Denies headaches, Denies loss of appetite, Denies malaise, Denies nausea/vomiting, Denies rash, Denies seizure, Denies shortness of breath, Denies syncope, Denies weakness, Denies other Treatments prior to arrival: none Past Medical/Family History Physician Review I have reviewed the patient's past medical and family history. Any updates have been documented here. Past Medical History Recent Fever: No Clinical Suspicion of Infectio: No New/Unexplained Change in Ment: No Past Medical History: Hypertension, Hypothyroidism, Hyperlipedemia Other Medical History: CABG 2011 Past Surgical History: CABG Other Surgery: COLONSCOPY UNK GI SX (FOLLOWING COLONSCOPY) Social History Smoking Cessation: Never Smoker Alcohol Use: None Any Illegal Drug Use: No TB Exposure/Symptoms: No Physically hurt or threatened: No Family History Family history of heart diseas: No Other Last Tetanus: 2019 Any Pre-Existing Lines (PICC,: No Review of Systems Review of Systems Constitutional: Reports weakness EENTM: Reports no symptoms Cardiovascular: Reports no symptoms Respiratory: Reports no symptoms Gastrointestinal: Reports no symptoms Genitourinary: Reports no symptoms Musculoskeletal: Reports no symptoms Integumentary: Reports no symptoms Neurological: Reports no symptoms Psychological: Reports no symptoms Endocrine: Reports no symptoms Hematological/Lymphatic: Reports anemia; Denies easy bleeding, Denies easy bruising, Denies swollen glands Review of other systems All other systems reviewed and negative. Physical Exam Related Data Allergies: Coded Allergies: No Known Allergies (Unverified , 06/22/13) Triage Vital Signs Vital Signs Date Time Temp Pulse Resp B/P (MAP) Pulse Ox O2 Delivery O2 Flow Rate FiO2 01/16/20 13:07 98.3 64 16 98/56 98 Vital signs reviewed: Yes Physical Exam CONSTITUTIONAL Constitutional: Reports well-developed, Reports well-nourished HENT HENT: Reports normocephalic, Reports atraumatic, Reports oropharynx clear/moist, Reports nose normal HENT L/R: Reports left ext ear normal, Reports right ext ear normal EYES Eyes: Reports PERRL, Reports conjunctivae normal NECK Neck: Reports ROM normal PULMONARY Pulmonary: Reports effort normal, Reports breath sounds normal CARDIOVASCULAR Cardiovascular: Reports regular rhythm, Reports heart sounds normal, Reports capillary refill normal, Reports normal rate, Reports other (denies cp ); Denies LLE edema, Denies RLE edema GASTROINTESTINAL Abdominal: Reports soft, Reports nontender, Reports bowel sounds normal, Reports other (denies abd pain ) GENITOURINARY Genitourinary: Reports exam deferred SKIN Skin: Reports warm, Reports dry, Reports pale (mild appearance ) MUSCULOSKELETAL Musculoskeletal: Reports ROM normal NEUROLOGICAL Neurological: Reports alert, Reports oriented x 3, Reports no gross motor or sensory deficits PSYCHOLOGICAL Psychological: Reports mood/affect normal, Reports judgement normal Results Laboratory Laboratory Laboratory Tests Test 01/16/20 13:22 White Blood Count 5.11 x10e3/uL (4.8-10.8) Red Blood Count 3.44 x10e6/uL (4.3-5.7) Hemoglobin 7.4 g/dL (14.0-18.0) Hematocrit 25.7 % (38.2-49.6) Mean Corpuscular Volume 74.7 fL (81-99) Mean Corpuscular Hemoglobin 21.5 pg (28-32) Mean Corpuscular Hemoglobin Concent 28.8 g/dL (31-35) Red Cell Distribution Width 21.7 % (11.7-14.4) Platelet Count 181 x10e3/uL (140-360) Neutrophils (%) (Auto) 67.3 % (38.7-80.0) Lymphocytes (%) (Auto) 18.2 % (18.0-39.1) Monocytes (%) (Auto) 10.0 % (4.4-11.3) Eosinophils (%) (Auto) 3.7 % (0.0-6.0) Basophils (%) (Auto) 0.4 % (0.0-1.0) Neutrophils # (Auto) 3.4 (2.1-6.9) Lymphocytes # (Auto) 0.9 (1.0-3.2) Monocytes # (Auto) 0.5 (0.2-0.8) Eosinophils # (Auto) 0.2 (0.0-0.4) Basophils # (Auto) 0.0 (0.0-0.1) Absolute Immature Granulocyte (auto 0.02 x10e3/uL (0-0.1) Sodium Level 138 mmol/L (136-145) Potassium Level 4.2 mmol/L (3.5-5.1) Chloride Level 107 mmol/L (98-107) Carbon Dioxide Level 22 mmol/L (22-29) Anion Gap 13.2 mmol/L (8-16) Blood Urea Nitrogen 15 mg/dL (7-26) Creatinine 1.05 mg/dL (0.72-1.25) Estimat Glomerular Filtration Rate > 60 ML/MIN (60-) BUN/Creatinine Ratio 14 (6-25) Glucose Level 112 mg/dL (74-118) Calcium Level 8.8 mg/dL (8.4-10.2) Total Bilirubin 0.7 mg/dL (0.2-1.2) Aspartate Amino Transf (AST/SGOT) 15 IU/L (5-34) Alanine Aminotransferase (ALT/SGPT) 13 IU/L (0-55) Alkaline Phosphatase 65 IU/L (40-150) Creatine Kinase 76 IU/L (30-200) Creatine Kinase MB 2.20 ng/mL (0-5.0) Troponin I 0.030 ng/mL (0-0.300) Total Protein 6.2 g/dL (6.5-8.1) Albumin 3.5 g/dL (3.5-5.0) Globulin 2.7 g/dL (2.3-3.5) Albumin/Globulin Ratio 1.3 (0.8-2.0) Lab results reviewed: Yes Imaging Impressions Procedure: [id number] DX/CHEST SINGLE (PORTABLE) Exam Date: 01/16/20 Exam Time: 1355 REPORT STATUS: Signed Chest, 1 view, 01/16/2020. History: Low hemoglobin, leg swelling. Comparison: 09/29/2016. Findings: The cardiac silhouette is mildly prominent but the pulmonary vasculature is within normal limits for a portable exam. Linear opacities are present the lung bases. There is no focal consolidation or pleural effusion. Median sternotomy wires and CABG clips are again noted. There are no acute osseous or soft tissue abnormalities. Impression: Myocardial cardiomegaly with bibasilar atelectasis. Signed by: Madonna Salinas on 01/16/2020 2:18 PM Dictated By: MADONNA SALINAS MD 1418 Transcribed By: LAUREN on 01/16/20 1418 Procedures 12 Lead ECG Interpretation ECG Interpretation : Rope Making Machine Operator: Interpreted by ED physician Date: Jan 16, 2020 Time: 13:25 Prior ECG tracings: reviewed Rhythm: sinus rhythm Rate: normal BPM: 63 QRS axis: normal T wave inversion: II, III, aVF, V3, V4, V5, V6 Q waves: III, aVF Assessment & Plan Medical Decision Making MDM This is a 79 year old male . 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 Reassessment Reassessment hemaglobin 7.4 here today offered admit pt/ family declined admit - discussed lab results plan of care and f/u instructions pt denies cp sob n/v dizziness santos at this time pt amb w/o diff 1. follow up with your doctor in 1-2 days without fail 2. return to ed as needed Assessment & Plan Final Impression: (1) Anemia Depart Disposition: HOME, SELF-CARE Last Vital Signs Date Time Temp Pulse Resp B/P (MAP) Pulse Ox O2 Delivery O2 Flow Rate FiO2 01/16/20 13:07 98.3 64 16 98/56 98 Home Meds Active Scripts Benzonatate (TESSALON PERLE) 100 Mg Capsule, 100 MG PO TID PRN for cough for 7 Days, #21 Prov:HELLEN FORD MD 07/08/19 Amoxicillin/Potassium Clav (AUGMENTIN 875-125 TABLET) 1 Each Tablet, 1 EACH PO BID for 7 Days, #14 Prov:HELLEN FORD MD 07/08/19 Reported Medications Cholecalciferol (Vitamin D3) (VITAMIN D) 1,000 Unit Tablet, 2000 UNIT PO DAILY, #30 TAB 09/29/16 Fluticasone Propionate (FLUTICASONE PROPIONATE) 16 Gm [place].susp, 50 MCG INH DAILY 09/29/16 Metoprolol Tartrate (METOPROLOL TARTRATE) 50 Mg Tablet, 50 MG PO BID, TAB 09/29/16 Ranolazine (RANEXA) 500 Mg Tabsr, 1000 MG PO BID, #60 TAB 09/29/16 Pantoprazole Sodium* (PROTONIX) 40 Mg Tablet.dr, 40 MG PO DAILY, TAB 09/29/16 Aspirin (ASPIR 81) 81 Mg Tablet.dr, 81 MG PO DAILY 09/29/16 Budesonide/Formoterol Fumarate (SYMBICORT 160-4.5 MCG INHALER) 10.2 Gm Hfa. aer.ad, 1 INH IH BID 09/29/16 Lisinopril (LISINOPRIL) 2.5 Mg Tablet, 2.5 MG PO DAILY, #30 TAB 09/29/16 Clopidogrel Bisulfate (CLOPIDOGREL) 75 Mg Tablet, 75 MG PO DAILY, #30 TAB 09/29/16 Loratadine (LORATADINE) 10 Mg Tablet, 10 MG PO DAILY, #30 TAB 09/29/16 Isosorbide Mononitrate (ISOSORBIDE MONONITRATE) 20 Mg Tablet, 120 MG PO DAILY, #30 TAB 09/29/16 [Levothyroxine] No Conflict Check, 75 MCG PO DAILY 06/22/13 Furosemide (FUROSEMIDE) 40 Mg Tablet, 40 MG PO DAILY 06/22/13 Potassium Chloride (POTASSIUM CHLORIDE) 20 Meq Tab.er.prt, 10 MG PO BID 06/22/13 Tramadol Hcl* (ULTRAM 50MG*) 50 Mg Tab, 50 MG PO Q6H PRN for PAIN 06/22/13 STEPHEN IBARRA MD Jan 16, 2020 13:26
[2020-01-16 14:07] LABS: BASOPHILS % 0.4 % (0.0-1.0); EOSINOPHILS # (AUTO) 0.2 (0.0-0.4); EOSINOPHILS % 3.7 % (0.0-6.0); HEMATOCRIT 25.7 % (38.2-49.6); HEMOGLOBIN 7.4 g/dL (14.0-18.0); LYMPHOCYTES # (AUTO) 0.9 (1.0-3.2); LYMPHOCYTES % 18.2 % (18.0-39.1); MEAN CORPUSCULAR HEMOGLOBIN 21.5 pg (28-32); MEAN CORPUSCULAR HGB CONC 28.8 g/dL (31-35); MEAN CORPUSCULAR VOLUME 74.7 fL (81-99); MONOCYTES # (AUTO) 0.5 (0.2-0.8); NEUTROPHILS # (AUTO) 3.4 (2.1-6.9); NEUTROPHILS % 67.3 % (38.7-80.0); PLATELET COUNT 181 x10e3/uL (140-360); RED BLOOD COUNT 3.44 x10e6/uL (4.3-5.7); RED CELL DISTRIBUTION WIDTH 21.7 % (11.7-14.4)
--- NOTE | 2020-01-16 14:21 | Diagnostic Imaging Report ---
Chest, 1 view, 01/16/2020. History: Low hemoglobin, leg swelling. Comparison: 09/29/2016. Findings: The cardiac silhouette is mildly prominent but the pulmonary vasculature is within normal limits for a portable exam. Linear opacities are present the lung bases. There is no focal consolidation or pleural effusion. Median sternotomy wires and CABG clips are again noted. There are no acute osseous or soft tissue abnormalities. Impression: Myocardial cardiomegaly with bibasilar atelectasis. Signed by: Sunny Salinas on 01/16/2020 2:18 PM
[2020-01-16 14:32] LABS: ALANINE AMINOTRANSFERASE 13 IU/L (0-55); ALBUMIN 3.5 g/dL (3.5-5.0); ALBUMIN/GLOBULIN RATIO 1.3 (0.8-2.0); ALKALINE PHOSPHATASE 65 IU/L (40-150); ANION GAP 13.2 mmol/L (8-16); BLOOD UREA NITROGEN 15 mg/dL (7-26); BUN/CREATININE RATIO 14 (6-25); CALCIUM 8.8 mg/dL (8.4-10.2); CARBON DIOXIDE 22 mmol/L (22-29); CHLORIDE 107 mmol/L (98-107); CREATINE KINASE 76 IU/L (30-200); CREATININE, SERUM 1.05 mg/dL (0.72-1.25); EST GLOMERULAR FILTRATION RATE > 60 ML/MIN (60-); GLUCOSE 112 mg/dL (74-118); POTASSIUM 4.2 mmol/L (3.5-5.1); SODIUM 138 mmol/L (136-145)
== END 2020-01-16 17:13 | disposition home or self-care (01) ==
LOC: ER 12:48
DX: D64.9 Anemia, unspecified (principal); R53.1 Weakness; I51.7 Cardiomegaly; J98.11 Atelectasis; I10 Essential (primary) hypertension; E78.5 Hyperlipidemia, unspecified; E03.9 Hypothyroidism, unspecified; Z95.1 Presence of aortocoronary bypass graft
CPT/HCPCS: 36415; 71045; 80053; 82550; 82553; 84484; 85025; 86850; 86900; 93005; 99284

== ENCOUNTER → 2022-08-17 | Day surgery (SDC) | payer MEDICARE ==
[2022-08-14 11:13] LABS: BASOPHILS % 0.3 % (0.0-1.0); EOSINOPHILS # (AUTO) 0.1 (0.0-0.4); EOSINOPHILS % 1.5 % (0.0-6.0); HEMATOCRIT 38.2 % (38.2-49.6); HEMOGLOBIN 11.8 g/dL (14.0-18.0); LYMPHOCYTES % 29.5 % (18.0-39.1); MEAN CORPUSCULAR HEMOGLOBIN 32.4 pg (28-32); MEAN CORPUSCULAR HGB CONC 30.9 g/dL (31-35); MEAN CORPUSCULAR VOLUME 104.9 fL (81-99); MONOCYTES # (AUTO) 0.7 (0.2-0.8); MONOCYTES % 10.5 % (4.4-11.3); NEUTROPHILS # (AUTO) 3.9 (2.1-6.9); NEUTROPHILS % 57.8 % (38.7-80.0); PLATELET COUNT 188 x10e3/uL (140-360); RED BLOOD COUNT 3.64 x10e6/uL (4.3-5.7); RED CELL DISTRIBUTION WIDTH 11.7 % (11.7-14.4)
[2022-08-14 11:25] LABS: INR 1.04; PROTHROMBIN TIME 13.8 seconds (11.9-14.5)
[2022-08-14 11:36] LABS: ALBUMIN 3.5 g/dL (3.5-5.0); ALBUMIN/GLOBULIN RATIO 1.3 (0.8-2.0); ANION GAP 13.4 mmol/L (8-16); CALCIUM 8.6 mg/dL (8.4-10.2); CREATININE, SERUM 0.94 mg/dL (0.72-1.25); POTASSIUM 4.4 mmol/L (3.5-5.1)
[~2022-08-17] VITALS: Ht 162.6 cm; Wt 89.4 kg
[~2022-08-17] MED LIST changes: +ALPRAZOLAM 0.5 MG TAB ONE; +ATORVASTATIN CA20 MG PO; +DIPHENHYDRAMINE HCL 25 MG CAP ONE; +FENTANYL CITRATE/PF 100MCG/2 ML INJ ONE; +HEPARIN SOD (PORCINE) 1000 UNIT/ML 30ML ONE; +HEPARIN SOD/SOD CHLORIDE 2,000 ML ONE; +IOPAMIDOL 370 MG/ML 100 ML INFUS..BTL INJ ONE; +LIDOCAINE HCL 1% LOCAL INJ 20 ML VIAL ONE; +MIDAZOLAM HCL 2 MG/2 ML VIAL ONE; +NITROGLYCERIN/D5W 200 MCG/ML 250 ML ONE; +SODIUM CHLORIDE 0.9% 1000ML 1,000 ML ONE
[2022-08-17 12:55] VITALS: BP 129/60
[2022-08-17 13:09] VITALS: BP 103/58
[2022-08-17 13:25] VITALS: BP 112/55
[2022-08-17 13:40] VITALS: BP 102/62
[2022-08-17 14:15] VITALS: BP 99/55
== END | disposition home or self-care (01) ==
LOC: CATH LAB 08:30
PROVIDERS: ATTEND Internal Medicine Cardiovascular Disease
DX: I25.708 Atherosclerosis of coronary artery bypass graft(s), unspecified, with other forms of angina pectoris (principal); I65.23 Occlusion and stenosis of bilateral carotid arteries; I11.0 Hypertensive heart disease with heart failure; I50.22 Chronic systolic (congestive) heart failure; E78.00 Pure hypercholesterolemia, unspecified; Z71.82 Exercise counseling; Z71.3 Dietary counseling and surveillance; Z01.812 Encounter for preprocedural laboratory examination; Z79.82 Long term (current) use of aspirin; Z79.899 Other long term (current) drug therapy; Z68.31 Body mass index [BMI] 31.0-31.9, adult; Z95.1 Presence of aortocoronary bypass graft
CPT/HCPCS: 36415; 80053; 83880; 85025; 85610; 93455; C1887; J2001; J2250; J3010; J7030; Q9967; 99152; 99153; J1644

== ENCOUNTER → 2022-10-13 | Day surgery (SDC) | payer MEDICARE ==
[2022-10-08 13:04] LABS: BASOPHILS % 0.4 % (0.0-1.0); EOSINOPHILS # (AUTO) 0.2 (0.0-0.4); EOSINOPHILS % 2.2 % (0.0-6.0); HEMATOCRIT 40.8 % (38.2-49.6); HEMOGLOBIN 13.3 g/dL (14.0-18.0); LYMPHOCYTES # (AUTO) 2.6 (1.0-3.2); LYMPHOCYTES % 34.4 % (18.0-39.1); MEAN CORPUSCULAR HEMOGLOBIN 31.4 pg (28-32); MEAN CORPUSCULAR HGB CONC 32.6 g/dL (31-35); MEAN CORPUSCULAR VOLUME 96.2 fL (81-99); MONOCYTES # (AUTO) 0.8 (0.2-0.8); MONOCYTES % 10.5 % (4.4-11.3); NEUTROPHILS % 52.2 % (38.7-80.0); PLATELET COUNT 179 x10e3/uL (140-360); RED BLOOD COUNT 4.24 x10e6/uL (4.3-5.7); RED CELL DISTRIBUTION WIDTH 13.1 % (11.7-14.4)
[2022-10-08 13:23] LABS: INR 1.01; PROTHROMBIN TIME 13.5 seconds (11.9-14.5)
[2022-10-08 13:24] LABS: PARTIAL THROMBOPLASTIN TIME 41.8 seconds (23.8-35.5)
[2022-10-08 13:31] LABS: ANION GAP 13.9 mmol/L (8-16); CREATININE, SERUM 0.88 mg/dL (0.72-1.25); POTASSIUM 3.9 mmol/L (3.5-5.1)
[~2022-10-13] MED LIST changes: -ALPRAZOLAM 0.5 MG TAB ONE; +B-121000 MC2 PO; -DIPHENHYDRAMINE HCL 25 MG CAP ONE; -FENTANYL CITRATE/PF 100MCG/2 ML INJ ONE; +FEROSUL325 MG PO; +FISH OIL 1,0001 EAC7 PO; +HEPARIN SOD/SOD CHLORIDE 1,000 ML ONE; -HEPARIN SOD/SOD CHLORIDE 2,000 ML ONE; -IOPAMIDOL 370 MG/ML 100 ML INFUS..BTL INJ ONE; +LIDOCAINE HCL 1% 2 ML AMP ONE; -LIDOCAINE HCL 1% LOCAL INJ 20 ML VIAL ONE; -MIDAZOLAM HCL 2 MG/2 ML VIAL ONE; +MONTELUKAST SOD10 MG PO; +MUPIROCIN 2% OINT 22 GM TUBE ONE; -NITROGLYCERIN/D5W 200 MCG/ML 250 ML ONE; +NITROGLYCERIN0.4 MG SL; +PROTAMINE SULFATE 10 MG/ML 5 ML VIAL ONE; -SODIUM CHLORIDE 0.9% 1000ML 1,000 ML ONE; +SODIUM CHLORIDE 0.9% 500ML 0 ML ONE; +THROMBIN FOR SOLN 5,000 UNIT VIAL ONE; +TYLENOL325 MG PO
[2022-10-13 12:01] LABS: INR 1.03; PROTHROMBIN TIME 13.7 seconds (11.9-14.5)
[2022-10-13 12:02] LABS: PARTIAL THROMBOPLASTIN TIME 30.7 seconds (23.8-35.5)
== END | disposition home or self-care (01) ==
LOC: OR 10:22
PROVIDERS: ATTEND Thoracic Surgery (Cardiothoracic Vascular Surgery)
DX: I65.22 Occlusion and stenosis of left carotid artery (principal); Z01.812 Encounter for preprocedural laboratory examination; Z20.822 Contact with and (suspected) exposure to COVID-19; Z53.8 Procedure and treatment not carried out for other reasons
CPT/HCPCS: 0223U; 36415 ×2; 80048; 85025; 85610 ×2; 85730 ×2; 86850; 86900; 86920; J1644; J2001; J2720; J7040

== ENCOUNTER → 2022-10-15 | Outpatient (CLI) | payer MEDICARE ==
[~2022-10-15] MED LIST changes: -HEPARIN SOD (PORCINE) 1000 UNIT/ML 30ML ONE; -HEPARIN SOD/SOD CHLORIDE 1,000 ML ONE; +IOPAMIDOL 370 MG/ML 100 ML INFUS..BTL INJ ONE; -LIDOCAINE HCL 1% 2 ML AMP ONE; -MUPIROCIN 2% OINT 22 GM TUBE ONE; -PROTAMINE SULFATE 10 MG/ML 5 ML VIAL ONE; -SODIUM CHLORIDE 0.9% 500ML 0 ML ONE; -THROMBIN FOR SOLN 5,000 UNIT VIAL ONE
[2022-10-15 14:26] LABS: CREATININE, SERUM 1.05 mg/dL (0.72-1.25)
== END ==
LOC: CT 13:40
PROVIDERS: ATTEND Family Medicine
DX: R07.1 Chest pain on breathing (principal)
CPT/HCPCS: 36415; 71260; 82565; 84520; Q9967